=== PATIENT | male | born 1995 | race African-American/Black ===

== ENCOUNTER 2020-07-27 16:54 | Emergency (ER) | payer SELFPAY ==
[2020-07-27] MEDS ORDERED: NA CHLORIDE 0.9% 1,000 ML ONE (17:47)
[2020-07-27] MEDS ORDERED: DIPHENHYDRAMINE 50 MG/ML VIAL ONE (18:09)
[2020-07-27 18:17] LABS: Absolute Lymphocytes (CBC) 2.8 K/uL (0.7-4.9); BUN Blood Urea Nitrogen 8 mg/dL (7-18); Basophils % 1.1 % (0-1.3); Bicarbonate 30 mmol/L (21-32); Glucose Level 103 mg/dL (74-106); Hematocrit 49.2 % (39.6-49.0); Lymphocytes % 25.5 % (15.3-44.8); MPV 8.3 fL (7.6-11.3); Magnesium 2.2 mg/dL (1.8-2.4); Potassium 3.4 mmol/L (3.5-5.1); RBC Red Blood Cell Count 5.39 M/uL (4.33-5.43); Sodium Level 141 mmol/L (136-145)
[2020-07-27 18:21] LABS: Barbiturates NEGATIVE (NEGATIVE); Benzodiazepines NEGATIVE (NEGATIVE); Cocaine NEGATIVE (NEGATIVE); METHAMPHETAM NEGATIVE (NEGATIVE); Methadone NEGATIVE (NEGATIVE); Opiates NEGATIVE (NEGATIVE); Phencyclidine NEGATIVE (NEGATIVE); THC Cannibis POSITIVE (NEGATIVE)
[2020-07-27 18:25] LABS: Urine Blood NEGATIVE (NEG); Urine Glucose NEGATIVE (NEG); Urine Protein NEGATIVE (NEG)
[2020-07-27] MEDS ORDERED: POTASSIUM 25 MEQ EFFERV TAB ONE (18:37)
--- NOTE | 2020-07-27 18:47 | EDPHYS ---
Physician Documentation [facility] Name: Bryanna Rhodes Age: 25 yrs Sex: Male : 1995 Arrival Date: 07/27/2020 Time: 16:56 Bed 25 Private MD: ED Physician Babatunde Chand HPI: 07/27 17:35 This 25 yrs old Black Male presents to ER via Ambulatory with complaints of Sick. cp 17:35 The patient's problem is reported as generalized numbness. cp 17:35 Onset: The symptoms/episode began/occurred today. Duration: The episode is continuous. cp Associated signs and symptoms: Pertinent negatives: headache, fever. Patient's baseline: Neuro: alert and fully oriented, Motor: no deficits, Ambulation: walks without assistance, Speech: normal. 17:35 Patient reports ingestion of CBD oil with last use today. cp Historical: - Allergies: 17:08 No Known Allergies; aa5 - Home Meds: 17:08 None [Active]; aa5 - PMHx: 17:08 None; aa5 - PSHx: 17:08 None; aa5 - Immunization history:: Flu vaccine is not up to date. - Social history:: Smoking status: Patient reports the use of cigarette tobacco products, smokes one-half pack cigarettes per day, smokes one pack cigarettes per day. ROS: 17:40 Constitutional: Negative for fever, poor PO intake. cp 17:40 Eyes: Negative for injury, pain, redness, and discharge. cp 17:40 Cardiovascular: Negative for chest pain, edema, palpitations. 17:40 Respiratory: Negative for shortness of breath, wheezing. 17:40 Abdomen/GI: Negative for abdominal pain, nausea, vomiting, and diarrhea. 17:40 Skin: Negative for rash. 17:40 Neuro: Positive for numbness, all over, Negative for altered mental status, headache. 17:40 All other systems are negative. Exam: 17:45 CT study not indicated or reported. Reason for not performing CT: no focal deficits cp 17:45 Head/Face: Normocephalic, atraumatic. cp 17:45 Constitutional: The patient appears in no acute distress, alert, awake, non-diaphoretic, non-toxic, well developed, well nourished. 17:45 Eyes: Periorbital structures: appear normal, Conjunctiva: normal, no exudate, no injection, Lids and lashes: appear normal, bilaterally. 17:45 ENT: External ear(s): are unremarkable, Nose: is normal, Mouth: Lips: moist, Oral mucosa: moist, Posterior pharynx: Airway: no evidence of obstruction, patent. 17:45 Neck: ROM/movement: is normal, is supple, without pain, no range of motions limitations, no meningismus. 17:45 Chest/axilla: Inspection: normal, Palpation: is normal, no crepitus, no tenderness. 17:45 Cardiovascular: Rate: tachycardic, Rhythm: regular, Edema: is not appreciated. 17:45 Respiratory: the patient does not display signs of respiratory distress, Respirations: normal, no use of accessory muscles, no retractions, labored breathing, is not present, Breath sounds: are clear throughout, no decreased breath sounds, no stridor, no wheezing. 17:45 Abdomen/GI: Inspection: abdomen appears normal, Palpation: abdomen is soft and non-tender, in all quadrants. 17:45 Neuro: Orientation: to person, place \T\ time. Mentation: is normal, Cerebellar function: is grossly normal, Motor: moves all fours, strength is normal, Sensation: no obvious gross deficits. 18:32 ECG was reviewed by the Attending Physician. cp Vital Signs: 17:07 BP 131 / 88; Pulse 110; Resp 18 S; Temp 98.3(O); Pulse Ox 98% on R/A; Weight 83.91 kg aa5 (R); Height 5 ft. 9 in. (175.26 cm) (R); 18:32 BP 144 / 86; Pulse 89; Resp 15; Pulse Ox 96% ; Pain 0/10; jl7 17:07 Body Mass Index 27.32 (83.91 kg, 175.26 cm) aa5 MDM: 17:16 Patient medically screened. cp 18:45 Data reviewed: vital signs, nurses notes, lab test result(s), EKG, and as a result, I cp will discharge patient. 18:45 Test interpretation: by ED physician or midlevel provider: ECG. Counseling: I had a cp detailed discussion with the patient and/or guardian regarding: the historical points, exam findings, and any diagnostic results supporting the discharge/admit diagnosis, lab results, to return to the emergency department if symptoms worsen or persist or if there are any questions or concerns that arise at home. ED course: Patient reports symptoms improved. Will discharge to home for continued monitoring. 07/27 17:29 Order name: Magnesium; Complete Time: 18:19 cp 07/27 18:20 Interpretation: Within normal limits. cp 07/27 17:29 Order name: BMP; Complete Time: 18:19 cp 07/27 18:19 Interpretation: Normal except: K 3.4. cp 07/27 17:29 Order name: CBC with Diff; Complete Time: 18:20 cp 07/27 17:29 Order name: UDS; Complete Time: 18:28 cp 07/27 18:28 Interpretation: Reviewed. 07/27 17:29 Order name: COVID-19 cp 07/27 17:51 Order name: Urine Dipstick--Ancillary (enter results); Complete Time: 18:28 eb 07/27 17:29 Order name: EKG; Complete Time: 17:30 cp 07/27 17:29 Order name: EKG - Nurse/Tech; Complete Time: 18:31 cp 07/27 17:29 Order name: Urine Dipstick-Ancillary (obtain specimen); Complete Time: 17:59 cp EC:32 Rate is 85 beats/min. Rhythm is regular. [place] interval is normal. QRS interval is normal. cp QT interval is normal. T waves are Inverted in lead III. Interpreted by me. Reviewed by me. Administered Medications: 17:45 Drug: NS 0.9% 1000 ml Route: IV; Rate: 1 bolus; Site: left antecubital; jl7 18:31 Follow up: Response: No adverse reaction; IV Status: Completed infusion; IV Intake: jl7 1000ml 17:58 Drug: Benadryl 25 mg Route: IVP; Site: left antecubital; jl7 18:31 Follow up: Response: No adverse reaction; Anxiety decreased jl7 18:31 Drug: Potassium Effervescent Tablet 25 mEq Route: PO; jl7 18:31 Follow up: Response: No adverse reaction jl7 Disposition: 07/28 07:18 Co-signature as Attending Physician, Babatunde Chand MD I agree with the assessment and kdr plan of care. Disposition: 07/27/20 18:47 Discharged to Home. Impression: Paresthesia of skin - general. - Condition is Stable. - Discharge Instructions: Paresthesia, COVID-19. - Medication Reconciliation Form, Thank You Letter, Antibiotic Education, Prescription Opioid Use, Work release form form. - Follow up: Private Physician; When: 1 - 2 days; Reason: Worsening of condition. - Problem is new. - Symptoms have improved. Signatures: Dispatcher [employer] EDMS Babatunde Chand MD MD kdr Noris Vidal RN RN aa5 Dylon Felton PA PA cp Leal, Jahala, RN RN jl7 Corrections: (The following items were deleted from the chart) 07/27 18:56 18:47 07/27/2020 18:47 Discharged to Home. Impression: Paresthesia of skin - general. jl7 Condition is Stable. Forms are Medication Reconciliation Form, Thank You Letter, Antibiotic Education, Prescription Opioid Use. Follow up: Private Physician; When: 1 - 2 days; Reason: Worsening of condition. Problem is new. Symptoms have improved. cp 07/28 18:40 07/27 17:50 CT study not indicated or reported. Reason for not performing CT: no focal cp deficits cp
--- NOTE | 2020-07-27 18:47 | ER ---
Nurse's Notes [facility] Name: Bryanna Rhodes Age: 25 yrs Sex: Male : 1995 Arrival Date: 07/27/2020 Time: 16:56 Bed 25 Private MD: Diagnosis: Paresthesia of skin-general Presentation: 07/27 17:07 Chief complaint: Patient states: cough, body aches, no smell, no taste that began aa5 today. Pt denies sore throat. Coronavirus screen: Client denies travel out of the [place] in the last 14 days. cough unrelated to allergies, muscle pain, Client presents with at least one sign or symptom that may indicate coronavirus-19. Standard/surgical mask placed on the client. Provider contacted for isolation considerations. Ebola Screen: Patient negative for fever greater than or equal to 101.5 degrees Fahrenheit, and additional compatible Ebola Virus Disease symptoms. Initial Sepsis Screen: Does the patient meet any 2 criteria? No. Patient's initial sepsis screen is negative. Does the patient have a suspected source of infection? No. Patient's initial sepsis screen is negative. Risk Assessment: Do you want to hurt yourself or someone else? Patient reports no desire to harm self or others. Onset of symptoms was July 27, 2020. 17:07 Method Of Arrival: Ambulatory aa5 17:07 Acuity: JAVIER 4 aa5 Historical: - Allergies: 17:08 No Known Allergies; aa5 - Home Meds: 17:08 None [Active]; aa5 - PMHx: 17:08 None; aa5 - PSHx: 17:08 None; aa5 - Immunization history:: Flu vaccine is not up to date. - Social history:: Smoking status: Patient reports the use of cigarette tobacco products, smokes one-half pack cigarettes per day, smokes one pack cigarettes per day. Screenin:00 Abuse screen: Denies threats or abuse. Denies injuries from another. Nutritional jl7 screening: No deficits noted. Tuberculosis screening: No symptoms or risk factors identified. Fall Risk IV access (20 points). Assessment: 17:20 General: Appears in no apparent distress. uncomfortable, Behavior is cooperative, jl7 anxious. Pain: Denies pain. Neuro: Level of Consciousness is awake, alert, obeys commands, Oriented to person, place, time, situation. Cardiovascular: Patient's skin is warm and dry. Respiratory: Airway is patent Respiratory effort is even, unlabored, Respiratory pattern is regular, symmetrical. Derm: Skin is pink, warm \T\ dry. 18:32 Reassessment: Patient appears in no apparent distress at this time. Patient and/or jl7 family updated on plan of care and expected duration. Pain level reassessed. Patient is alert, oriented x 3, equal unlabored respirations, skin warm/dry/pink. Patient states feeling better. Patient states symptoms have improved. Vital Signs: 17:07 BP 131 / 88; Pulse 110; Resp 18 S; Temp 98.3(O); Pulse Ox 98% on R/A; Weight 83.91 kg aa5 (R); Height 5 ft. 9 in. (175.26 cm) (R); 18:32 BP 144 / 86; Pulse 89; Resp 15; Pulse Ox 96% ; Pain 0/10; jl7 17:07 Body Mass Index 27.32 (83.91 kg, 175.26 cm) aa5 ED Course: 16:56 Patient arrived in ED. rg4 17:07 Arm band placed on. aa5 17:08 Triage completed. aa5 17:09 Dylon Felton PA is PHCP. cp 17:09 Babatunde Chand MD is Attending Physician. cp 17:21 Amy Erickson, MARTHA is Primary Nurse. jl7 17:45 Initial lab(s) drawn, by ms, sent to lab. Urine collected: clean catch specimen, clear, jl7 COVID swab sent to lab. Inserted saline lock: 20 gauge in left antecubital area, using aseptic technique. Blood collected. 18:00 Patient has correct armband on for positive identification. Bed in low position. Call 7 light in reach. Side rails up X 1. 18:32 Pulse ox on. NIBP on. jl7 18:55 No provider procedures requiring assistance completed. IV discontinued, intact, jl7 bleeding controlled, No redness/swelling at site. Pressure dressing applied. Administered Medications: 17:45 Drug: NS 0.9% 1000 ml Route: IV; Rate: 1 bolus; Site: left antecubital; jl7 18:31 Follow up: Response: No adverse reaction; IV Status: Completed infusion; IV Intake: jl7 1000ml 17:58 Drug: Benadryl 25 mg Route: IVP; Site: left antecubital; jl7 18:31 Follow up: Response: No adverse reaction; Anxiety decreased jl7 18:31 Drug: Potassium Effervescent Tablet 25 mEq Route: PO; jl7 18:31 Follow up: Response: No adverse reaction jl7 Intake: 18:31 IV: 1000ml; Total: 1000ml. jl7 Outcome: 18:47 Discharge ordered by . cp 18:55 Discharged to home ambulatory. jl7 18:55 Condition: stable 18:55 Discharge instructions given to patient, Instructed on discharge instructions, follow up and referral plans. Demonstrated understanding of instructions, follow-up care. 18:56 Patient left the ED. jl7 Addendum: 08/01/2020 09:50 Addendum: COVID-19 Result: Negative result given to RN to notify pt. Contacted by: lakshmi Bolden RN. Notified pt of negative COVID 19 swab results. Pt advised that even with a negative test result they should remain in isolation until symptom free for 3 days without medication. Pt also advised to return to the ED for worsening symptoms. Signatures: Kierra Diaz, RN RN Noris Dotson RN RN chyna5 Dylon Felton PA PA cp Garcia, Rubi rg4 Amy Erickson RN RN jl7
[2020-08-01 21:11] VITALS: TEMP 98.3
[2020-08-01 21:16] VITALS: BP 136/82; O2SAT 98
== END 2020-07-27 18:56 | disposition home or self-care (01) ==
LOC: ER 16:54
DX: R20.2 Paresthesia of skin (principal); Z20.828 Contact with and (suspected) exposure to other viral communicable diseases; F17.210 Nicotine dependence, cigarettes, uncomplicated
CPT/HCPCS: 36415; 80048; 80307; 81003; 83735; 85025; 93005; 96361; 96374; 99284; J1200; J7030; U0002